=== PATIENT | female | born 1995 | race Caucasian/White ===

== ENCOUNTER 2017-12-13 23:35 | Emergency (ER) | payer OTHER ==
--- NOTE | 2017-12-14 01:29 | OBHP ---
Datetime: 12/14/2017 00:21 IP Adm Impression: Term, intrauterine ; No Active Labor; Intact Membranes IP Chief Complaint Other: Lower abdominal pain IP Admit Plan: Discharge home Admit Comment, IP Provider: 22 yo38.1wk with [facility] 12/26/16 based on patients recollection of U /S done at the end of January, doesnt recall her LMP. Patient seeing [facility] in [facility] snt have any records with her. Patient has been having lower abdominal pain, LBP for 1 hour wanted to make sure she wasnt in labor. Denies vaginal bleeding, LOF. Patient reports good movements. La st sexually active 2 days ago. Also reports some SOB and diarrhea today. OBHX: Denes any complications with current , 2 - no complications PNL: no records- states that they are normal [employer] HX: Denies any history of STI's, denies abnormal pap smears PMH- G6PD deficiency Meds: None Allergies :Amoxicillin- Hives Fhx: G6PD deficinecy, Diabetes Mom _ Dad Social Hx: Denies tobacco, drugs, or alcohol A/P: 38.1wk IUP here with lower abdominal pain r/o active labor - Monitor heart tracings -Check cervix- patient 3cm dialated no ROM - Gave ED precautions to return if contractions are 5 mins apart for over an 1 hour Amanda Fernandes M.D. PGY-1 Reviewed and discussed with Dr. Lao Attending Note: Patient was seen and examined with resident and I agree with the above. Extremities - PN: Normal Abdomen - PN: Normal Back - PN: Normal Lungs - PN: Normal Heart - PN: Normal HEENT - PN: Normal General - PN: Normal FHR - Baseline A Provider: 130 Comments, ACOG Physical Exam: 1+ edema B/L Pool Provider: Negative EGA AdmitDate IP: 38.2 Vital Signs Provider: Reviewed; Within Normal Limits IP Chief Complaint: Uterine contractions; Maternal discomfort NICHD Variability Prov Fetus A: Moderate 6-25bpm NICHD Accel Fetus A IP Provider: [id number] FHR Category Provider Fetus A: Category I NICHD Decel Fetus A IP Provider: None Dilatation, Provider: 3
[2017-12-14 02:32] VITALS: BMI 24.1
[2017-12-14 06:38] VITALS: BP 113/60; PULSE 97; RESP 18; TEMP 98.5
== END 2017-12-14 00:45 | disposition home or self-care (01) ==
LOC: H.EROB2 23:35
DX: O26.93 Pregnancy related conditions, unspecified, third trimester (principal); R10.2 Pelvic and perineal pain; M54.5 Low back pain; O47.1 False labor at or after 37 completed weeks of gestation; Z3A.38 38 weeks gestation of pregnancy